=== PATIENT | male | born 1975 | race African-American/Black ===

== ENCOUNTER 2016-12-14 08:58 | Inpatient (IN) | payer MEDICAID ==
[~2016-12-14] VITALS: Ht 154.9 cm; Wt 73.5 kg
[2016-12-14] MEDS ORDERED: PHEN100C4 PO (09:01)
[2016-12-14] MEDS ORDERED: LORAZEPAM 2MG/ML CPJ ONE (09:21)
[2016-12-14] MEDS ORDERED: SODIUM CHLORIDE 0.9% 1,000 ML IV ONE (09:51)
[2016-12-14] MEDS ORDERED: LORAZEPAM 2MG/ML CPJ IV ONE ×4 (10:00→14:00)
[2016-12-14] MEDS ORDERED: LORAZEPAM 2MG/ML CPJ IM ONE ×2 (10:30→14:15)
[2016-12-14 10:47] LABS: BASOPHILS % 0.9 % (0.0-2.0); EOSINOPHILS % 0.4 % (0.0-5.0); HEMATOCRIT. 39.9 % (42.0-52.0); HEMOGLOBIN. 12.2 g/dL (14.0-18.0); LYMPHOCYTES % 29.9 % (20.0-50.0); MEAN CORPUSCULAR HEMOGLOBIN 27.7 pg (28.0-32.0); MEAN CORPUSCULAR HGB CONC 30.5 g/dL (31.0-37.0); MEAN CORPUSCULAR VOLUME 90.6 fL (80.0-94.0); MEAN PLATELET VOLUME 7.4 fl (7.4-10.4); NEUTROPHILS % 58.8 % (40.0-76.0); PLATELET 225 x1000/uL (130-400); RED CELL DISTRIBUTION WIDTH 22.6 % (11.6-14.6); WHITE BLOOD COUNT 14.4 x1000/uL (4.5-11.0)
[2016-12-14 10:50] LABS: AMMONIA 177 uMol/L (<32); INDEX HEMOLYSI 1 (1-3)
[2016-12-14 10:51] LABS: CHLORIDE 104 mEq/L (98-107); DIFFERENTIAL COMMENT 1; INDEX HEMOLYSI 1 (1-3); INDEX ICTERIC 1 (1-4); INDEX LIPEMIC 1 (1-3)
[2016-12-14 10:52] LABS: ADD RBC MORPHOLOGY YES
[2016-12-14 10:55] LABS: ETHANOL BLOOD < 10 mg/dL; TROPONIN I 0.05 ng/mL (0.00-0.04)
[2016-12-14 10:56] LABS: ALANINE AMINOTRANSFERASE 49 IU/L (13-61); ALBUMIN 4.1 g/dL (3.4-5.0); ANION GAP 26; CARBON DIOXIDE 15 mEq/L (21-32); PHENYTOIN < 0.4 ug/mL (10-20); UREA NITROGEN BLOOD 9 mg/dL (7-21); eGFR > 60 mL/min (>60)
[2016-12-14] MEDS ORDERED: PHENYTOIN SODIUM 500 MG in SODIUM CHLORIDE 0.9% 50 ML IV ONE ×3 (11:00→15:20)
[2016-12-14 11:12] LABS: LACTIC ACID 16.9 mmol/L (0.4-2.0)
[2016-12-14 11:16] LABS: ANISOCYTOSIS 2+; PLATELET ESTIMATE NORMAL
[2016-12-14] MEDS ORDERED: LACTULOSE 20G/30ML UDC PO ONE (13:15)
[2016-12-14 20:46] LABS: CLARITY URINE CLEAR (CLEAR); COLOR URINE ORANGE (YELLOW); GLUCOSE URINE NEGATIVE (NEGATIVE); KETONES URINE 2+ (NEGATIVE); LEUKOCYTE ESTERASE URINE NEGATIVE (NEGATIVE); NITRITE URINE NEGATIVE (NEGATIVE); OCCULT BLOOD URINE NEGATIVE (NEGATIVE); PH URINE 7.5 (4.5-8.0); PROTEIN URINE NEGATIVE (NEGATIVE); SPECIFIC GRAVITY URINE 1.015 (1.005-1.030); UROBILINOGEN URINE 0.2 E.U./dL (0.2-1.0)
[2016-12-14 21:11] LABS: *AMPHETAMINES SCREEN URINE NEGATIVE (NEGATIVE); *BARBITURATES SCREEN URINE NEGATIVE (NEGATIVE); *BENZODIAZEPINES SCREEN URINE NEGATIVE (NEGATIVE); *COCAINE SCREEN URINE NEGATIVE (NEGATIVE); CANNABINOID URINE SCREEN NEGATIVE (NEGATIVE); ECSTASY MDMA SCREEN URINE NEGATIVE (NEGATIVE); METHADONE URINE SCREEN NEGATIVE (NEGATIVE); OPIATES URINE SCREEN NEGATIVE (NEGATIVE); PHENCYCLIDINE URINE SCREEN NEGATIVE (NEGATIVE)
[2016-12-14] MEDS ORDERED: MAGNESIUM/ALUMINUM HYDROXIDE/SIMETHICONE 30ML UDC PO PRN (21:30)
[2016-12-14] MEDS ORDERED: IPRATROPIUM/ALBUTEROL 0.5-3(2.5)MG/3ML NEB INH PRN (21:30)
[2016-12-14] MEDS ORDERED: ONDANSETRON HCL 4MG/2ML VIAL IV PRN (21:30)
[2016-12-14] MEDS ORDERED: CLONIDINE 0.1MG TABLET PO PRN (21:30)
[2016-12-14] MEDS ORDERED: LORAZEPAM 2MG/ML CPJ IV PRN (21:30)
[2016-12-14] MEDS ORDERED: MVI, ADULT NO.1 10 ML, FOLIC ACID 1 MG, THIAMINE HCL 100 MG in SODIUM CHLORIDE 0.9% 1,0... IV SCH ×4 (21:30)
[2016-12-14] MEDS ORDERED: DOCUSATE SODIUM 100MG CAPSULE PO PRN (21:30)
[2016-12-14] MEDS ORDERED: ACETAMINOPHEN 325MG TABLET PO PRN (21:30)
[2016-12-14] MEDS: LACTULOSE 20G/30ML UDC PO SCH (22:00)
[2016-12-14 23:29] LABS: TROPONIN I 0.1 ng/mL (0.00-0.04)
[2016-12-15] VITALS (8 sets, daily range): BP systolic 121–132; BP diastolic 76–97
[2016-12-15 05:19] LABS: BASOPHILS % 0.7 % (0.0-2.0); EOSINOPHILS % 0.1 % (0.0-5.0); HEMATOCRIT. 33.8 % (42.0-52.0); LYMPHOCYTES % 8.8 % (20.0-50.0); MEAN CORPUSCULAR HEMOGLOBIN 27.8 pg (28.0-32.0); MEAN CORPUSCULAR HGB CONC 32.7 g/dL (31.0-37.0); MEAN CORPUSCULAR VOLUME 85.2 fL (80.0-94.0); MEAN PLATELET VOLUME 7.2 fl (7.4-10.4); MONOCYTES % 6.7 % (2.0-8.0); NEUTROPHILS % 83.7 % (40.0-76.0); PLATELET 190 x1000/uL (130-400); RED BLOOD CELL COUNT 3.97 mill/uL (4.7-6.1); RED CELL DISTRIBUTION WIDTH 22.4 % (11.6-14.6); WHITE BLOOD COUNT 13.4 x1000/uL (4.5-11.0)
[2016-12-15 05:21] LABS: DIFFERENTIAL COMMENT 1
[2016-12-15 05:22] LABS: AMMONIA 35 uMol/L (<32); INDEX HEMOLYSI 1 (1-3)
[2016-12-15 05:27] LABS: ALANINE AMINOTRANSFERASE 37 IU/L (13-61); ALBUMIN 3.2 g/dL (3.4-5.0); ANION GAP 12; CALCIUM 8.1 mg/dL (8.5-10.1); CARBON DIOXIDE 28 mEq/L (21-32); CHLORIDE 105 mEq/L (98-107); CREATINE KINASE MB FRACTION 7.2 ng/mL (0.5-3.6); HDL CHOLESTEROL 123 mg/dL (40-59); INDEX HEMOLYSI 1 (1-3); INDEX ICTERIC 1 (1-4); INDEX LIPEMIC 1 (1-3); LDL CHOLESTEROL 51 mg/dL (5-100); PHENYTOIN 14.6 ug/mL (10-20); TRIGLYCERIDE 60 mg/dL (0-150); TROPONIN I 0.09 ng/mL (0.00-0.04); UREA NITROGEN BLOOD 9 mg/dL (7-21); eGFR > 60 mL/min (>60)
[2016-12-15 05:38] LABS: CREATINE KINASE 1351 IU/L (39-308)
[2016-12-15] MEDS: ENOXAPARIN 40MG/0.4ML SYR SUBCUT SCH (08:26)
[2016-12-15] MEDS ORDERED: PHENYTOIN SODIUM EXTENDED 100MG CAPSULE PO SCH ×2 (09:00→21:00)
[2016-12-15] MEDS: THIAMINE HCL 100MG TABLET PO SCH (09:55)
[2016-12-15] MEDS: MULTIVITAMINS,THER W-MINERALS TABLET PO SCH (09:55)
[2016-12-15] MEDS: FOLIC ACID 1MG TABLET PO SCH (09:55)
[2016-12-15] MEDS: RIFAXIMIN 550 MG TABLET PO SCH ×2 (09:55→21:08)
[2016-12-15] MEDS: LACTULOSE 20G/30ML UDC PO SCH ×2 (14:00→21:04)
[2016-12-15] MEDS: CHLORDIAZEPOXIDE 25MG CAPSULE PO SCH ×2 (15:18→21:10)
[2016-12-16] VITALS (9 sets, daily range): BP systolic 115–130; BP diastolic 68–83
[2016-12-16] MEDS: CHLORDIAZEPOXIDE 25MG CAPSULE PO SCH ×2 (05:15→13:36)
[2016-12-16] MEDS: LACTULOSE 20G/30ML UDC PO SCH ×2 (05:46→13:38)
[2016-12-16 06:25] LABS: AMMONIA 20 uMol/L (<32)
[2016-12-16 06:40] LABS: ANION GAP 14; CALCIUM 8.7 mg/dL (8.5-10.1); CARBON DIOXIDE 26 mEq/L (21-32); CHLORIDE 104 mEq/L (98-107); INDEX HEMOLYSI 1 (1-3); INDEX ICTERIC 1 (1-4); INDEX LIPEMIC 1 (1-3); PHENYTOIN 15.7 ug/mL (10-20); UREA NITROGEN BLOOD 13 mg/dL (7-21); eGFR > 60 mL/min (>60)
[2016-12-16 07:22] LABS: BASOPHILS % 0.3 % (0.0-2.0); EOSINOPHILS % 0.7 % (0.0-5.0); HEMATOCRIT. 34.7 % (42.0-52.0); HEMOGLOBIN. 11.2 g/dL (14.0-18.0); LYMPHOCYTES % 12.9 % (20.0-50.0); MEAN CORPUSCULAR HEMOGLOBIN 27.6 pg (28.0-32.0); MEAN CORPUSCULAR HGB CONC 32.4 g/dL (31.0-37.0); MEAN CORPUSCULAR VOLUME 85.2 fL (80.0-94.0); MEAN PLATELET VOLUME 7.4 fl (7.4-10.4); MONOCYTES % 7.2 % (2.0-8.0); NEUTROPHILS % 78.9 % (40.0-76.0); PLATELET 219 x1000/uL (130-400); RED BLOOD CELL COUNT 4.07 mill/uL (4.7-6.1); RED CELL DISTRIBUTION WIDTH 22.5 % (11.6-14.6); WHITE BLOOD COUNT 8.4 x1000/uL (4.5-11.0)
[2016-12-16 07:36] LABS: DIFFERENTIAL COMMENT 1
[2016-12-16] MEDS: FOLIC ACID 1MG TABLET PO SCH (08:20)
[2016-12-16] MEDS: THIAMINE HCL 100MG TABLET PO SCH (08:20)
[2016-12-16] MEDS: MULTIVITAMINS,THER W-MINERALS TABLET PO SCH (08:20)
[2016-12-16] MEDS: RIFAXIMIN 550 MG TABLET PO SCH (08:20)
[2016-12-16] MEDS: ENOXAPARIN 40MG/0.4ML SYR SUBCUT SCH (08:21)
== END 2016-12-16 18:02 | disposition home or self-care (01) | DRG 53 ==
LOC: ER 09:09 → 5EST 12-15 08:50
PROVIDERS: ADMIT Internal Medicine; ATTEND Internal Medicine
PROC: 0XH633Z Insertion of Infusion Device into Right Upper Extremity, Percutaneous Approach (ICD-10-PCS; principal; 2016-12-14)
PROC: B54MZZA Ultrasonography of Right Upper Extremity Veins, Guidance (ICD-10-PCS; 2016-12-14)
DX: G40.401 Other generalized epilepsy and epileptic syndromes, not intractable, with status epilepticus (principal); E87.2 Acidosis; I67.82 Cerebral ischemia; E72.20 Disorder of urea cycle metabolism, unspecified; M62.82 Rhabdomyolysis; D64.9 Anemia, unspecified; D72.829 Elevated white blood cell count, unspecified; F10.10 Alcohol abuse, uncomplicated; I10 Essential (primary) hypertension; Z59.0 Homelessness; Z91.14 Patient's other noncompliance with medication regimen; Z91.19 Patient's noncompliance with other medical treatment and regimen
CPT/HCPCS: 36415; 36569; 51702; 70450; 70551; 71010; 73110; 73130; 76937; 80048; 80053; 80061; 80185; 80305; 81003; 82140; 82550; 82553; 83605; 84443; 84484; 85025; 87040; 87086; 93005; 93306; 96365; 96366; 96367; 96372; 96375; 96376; 97162; 97165; 99291; C1725; G0482; J1165; J1650; J2060; J3411; J3490; J7030; J7040

== ENCOUNTER 2017-04-29 03:36 | Emergency (ER) | payer MEDICAID ==
[~2017-04-29 03:36] MED LIST: PHEN100C4 PO
== END 2017-04-29 07:17 | disposition left against medical advice (07) ==
LOC: ER 07:15
DX: R10.9 Unspecified abdominal pain (principal); Z53.21 Procedure and treatment not carried out due to patient leaving prior to being seen by health care provider

== ENCOUNTER 2017-05-12 20:11 | Emergency (ER) | payer MEDICAID ==
[~2017-05-12] VITALS: Ht 177.8 cm; Wt 68.0 kg
[2017-05-12 20:40] VITALS: BP 136/91
== END 2017-05-12 21:05 | disposition left against medical advice (07) ==
LOC: ER 20:24
DX: R07.81 Pleurodynia (principal); M79.602 Pain in left arm; Z53.21 Procedure and treatment not carried out due to patient leaving prior to being seen by health care provider